=== PATIENT | female | born 1945 | race Caucasian/White ===

== ENCOUNTER 2020-04-30 12:09 | Observation (INO) ==
--- NOTE | 2020-04-30 12:55 | DR.GENAD ---
HPI Time Seen Time Seen by Provider: 04/30/20 12:55 PCP Primary Care Physician: CASSI FARRIS [place] HPI Comment HPI Comment: PATIENT IS 74YR OLD FEMALE FELL ONE WEEK AGO AND SUSTAINED INJURY TO LOWER BACK, RIGHT HIP AND RIGHT LEG AREA. PATIENT WENT HOME AMA BUT SAID PATIENT HAVE GOTTEN WORSE. Complaint/Symptoms Chief Complaint Doctors Comments: PAIN RIGHT HIP. LEG AND LOWER BACK DUE TO A F ALL LAST WEEK. Chief Complaint:: FELL LAST WEEK AND HAS PAIN TO THE RIGHT LEG/HIP/BACK AREA. SHE WAS OFFERRED ADMISSION AT THAT TIME AND FAMILY DECLINED. HE NOW ADMITS THAT HE IS UNABLE TO PROVIDE THE CARE THAT IS NEEDED FOR HER TO STAY AT HOME Self Treatment fo Chief Complaint: TAKING MEDS ORDERED COVID-19 Coronavirus risk:travel/contact w/high risk person: No Has patient experienced Coronavirus symptoms: No Source History Provided: Patient and Significant Other Mode of Arrival Mode of Arrival: Wheelchair Timing Onset of Chief Complaint: 04/29/20 PMH PMH Past Medical History: Yes Past Medical History: Hypertension Past Surgical History: Yes Surgical History: Hysterectomy Family History History of Family Medical Conditions: Yes Family Medical History: Hypertension Social History Alcohol Use: None Do you use any recreational Drugs:: No Lives With: Spouse Lives Where: Home Travel Risk Coronavirus risk:travel/contact w/high risk person: No Has patient experienced Coronavirus symptoms: No Infectious screening In the last 2 months have you had wt loss of >10#?: NO Have you had fever, night sweats or hemotysis?: No Have you traveled outside the country in the last 6 months?: No Isolation: Standard ROS Review of Systems Constitutional: See HPI, Weakness and Fatigue; negative Fever Eyes: No Symptoms Reported and See HPI ENTM: No Symptoms Reported and See HPI; negative Nose Discharge and Nose Congestion Respiratoy: No Symptoms Reported and See HPI; negative Moist Cough, Short of Breath and Wheezing Cardiovascular: No Symptoms Reported and See HPI Gastrointestinal/Abdominal: No Symptoms Reported and See HPI; negative Abdominal Pain, Diarrhea and Vomiting Genitourinary: No Symptoms Reported and See HPI; negative Dysuria Neurological: See HPI and Weakness; negative Headache and Dizziness Musculoskeletal: No Symptoms Reported, See HPI, Back Pain, Pelvis, Hip (RT HI[) and Leg (RT LEG.) Integumentary: No Symptoms Reported and See HPI; negative Change in Color, Rash and Juandice Hematologic/Lymphatic: No Symptoms Reported, See HPI and Easy Bruising Endocrine: No Symptoms Reported and See HPI; negative Increased Thirst and Increased Urine Psychiatric: No Symptoms Reported and See HPI All Other Systems: Reviewed and Negative PE Vital Signs Vitals: Temperature 98.9 F Pulse Rate 68 Respiratory Rate 29 Blood Pressure [Left Arm] 138/68 Blood Pressure 118/60 O2 Sat by Pulse Oximetry 98 General Limitations: No Limitations General Appearance: Alert and In No Apparent Distress Head Head Exam: Normal Inspection and Atraumatic Eyes Eye exam: Normal Appearance and PERRL; negative Scleral Icterus and Conjunctival Injection ENT ENT Exam: Normal Exam, Normal Oropharynx, Normal External Ear Exam and TM's Normal Bilaterally External Ear Exam: Normal External Inspection; negative Mastoid Tenderness TM/Canal Exam: Bilateral: Normal Nose Exam: Normal Nose Exam Mouth Exam: Normal Inspection; negative Lip Swelling and Tongue Swelling Throat Exam: Normal Inspection; negative Tonsillar Erythema, Tonsillomegaly and Tonsillar Exudate Neck Neck Exam: Normal Inspection and Trachea Midline; negative Tenderness and Lymphadenopathy Chest Chest Inspection: Normal Inspection; negative Symmetric Chest Wall Rise Respiratory Respiratory Exam: Normal Lung Sounds Bilat; negative Accessory Muscle Use and Respiratory Distress Respiratory Exam: Bilateral: Clear to Auscultation Cardiovascular Cardiovascular Exam: Regular Rate, Normal Rhythm and Normal Heart Sounds; negative Systolic Murmur and Diastolic Murmur Abdominal Exam Abdominal Exam: Normal Inspection, Normal Bowel Sounds and Soft; negative Tenderness Extremities Extremities Exam: Normal Inspection and Tenderness (RT HIP AND LEG TENDERNESS. ROM DECREASE.) Back Back Exam: Tenderness (LOWER BACK.), Paraspinal Tenderness (LOWER BACK.) and Vertebral Tenderness Neurologic Neurological Exam: Alert and Oriented X3; negative Motor Sensory Deficit Psychiatric Psychiatric Exam: Normal Affect and Normal Mood Skin Skin Exam: Warm, Dry, Intact and Normal Color MDM Differential Diagnosis Differential Diagnosis: PELVIC FRACTURE, GENERALIZED WEAKNESS, PNEUMONIA, UTI, FRACTURE PELVIC. COURSE Treatment Treatment: SEE ORDERS. MORPHIN 4MG IM AND ZOFRAN 4MG IM IN ER. PAIN IMPROVING. Reevaluation 1st: Improved Consultation Consultation Comments: DISCUSSED PATIENT WITH DR. ARROYO. HE WILL ADMIT PATIENT. Education/Counseling Education/Counseling: Patient and Family Educated On: Diagnosis ROR Labs Reviewed Laboratory Results Reviewed?: Yes Result Diagrams: 05/01/20 05:20 05/01/20 05:20 Laboratory: WBC 12.6 X10^3/uL (3.6-10.0) H 04/30/20 13:17 RBC 4.01 X10^6/uL (3.5-5.4) 04/30/20 13:17 Hgb 10.3 g/dL (12.0-16.0) L 04/30/20 13:17 Hct 32.0 % (36.0-47.0) L 04/30/20 13:17 MCV 79.8 fL (80.0-100.0) L 04/30/20 13:17 MCH 25.5 pg (27.0-34.0) L 04/30/20 13:17 MCHC 32.0 g/dL (33.0-35.0) L 04/30/20 13:17 RDW 22.1 % (11.6-16.5) H 04/30/20 13:17 Plt Count 501 X10^3/uL (150.0-450.0) H 04/30/20 13:17 Plt Count Comment Adequate (ADEQUATE) 04/30/20 13:17 MPV 8.2 fL (7.4-11.0) 04/30/20 13:17 Neut % (Auto) 81.0 % (42.0-75.0) H 04/30/20 13:17 Lymph % (Auto) 7.9 % (21.0-51.0) L 04/30/20 13:17 [place] % (Auto) 8.3 % (0.0-13.0) 04/30/20 13:17 Eos % (Auto) 2.8 % (0.9-2.9) 04/30/20 13:17 Baso % (Auto) 0 % (0.2-1.0) L 04/30/20 13:17 Neut # (Auto) 10.2 x10^3/uL (2.2-4.8) H 04/30/20 13:17 Lymph # (Auto) 1.0 X10^3/uL (1.3-2.9) L 04/30/20 13:17 [place] # (Auto) 1.0 x10^3/uL (0.3-0.8) H 04/30/20 13:17 Eos # (Auto) 0.4 x10^3/uL (0.0-0.2) H 04/30/20 13:17 Baso # (Auto) 0.0 X10^3/uL (0.0-0.1) 04/30/20 13:17 Absolute Nucleated RBC 0.1 /100WBC 04/30/20 13:17 Plt Morphology Comment Normal (NORMAL) 04/30/20 13:17 RBC Morphology Abnormal (NORMAL) A 04/30/20 13:17 Poikilocytosis Slight A 04/30/20 13:17 Anisocytosis Slight A 04/30/20 13:17 Sodium 140 mmol/L (136-145) 04/30/20 13:17 Corrected Sodium 140 mmol/L (136-145) 04/30/20 13:17 Potassium 4.3 mmol/L (3.5-5.1) 04/30/20 13:17 Chloride 107 mmol/L (98-107) 04/30/20 13:17 Carbon Dioxide 24.4 mmol/L (21-32) 04/30/20 13:17 BUN 33 mg/dL (7-18) H 04/30/20 13:17 Creatinine 1.24 mg/dL (0.55-1.02) H 04/30/20 13:17 Est GFR (MDRD) Af Amer 54 (>60) L 04/30/20 13:17 Est GFR (MDRD) Non-Af 45 (>60) L 04/30/20 13:17 Glucose 112 mg/dL (65-99) H 04/30/20 13:17 Calcium 8.9 mg/dL (8.5-10.1) 04/30/20 13:17 Corrected Calcium 10.3 mg/dL (8.5-10.1) H 04/30/20 13:17 Total Bilirubin 0.30 mg/dL (0.2-1.0) 04/30/20 13:17 AST 68 Units/L (15-37) H 04/30/20 13:17 ALT 15 Units/L (12-78) 04/30/20 13:17 Alkaline Phosphatase 138 Units/L (46-116) H 04/30/20 13:17 Total Protein 7.0 g/dL (6.4-8.2) 04/30/20 13:17 Albumin 2.3 g/dL (3.4-5.0) L 04/30/20 13:17 Globulin 4.7 g/dL (2.5-4.5) H 04/30/20 13:17 Albumin/Globulin Ratio 0.5 Ratio (1.1-2.1) L 04/30/20 13:17 SARS CoV-2 RNA Rapid NETO Negative (NEGATIVE) 04/30/20 13:24 XRAY XRAY Interpreted by: Radiologist (REPORT NOTED AND DISCUSSED WITH PATIENT.) and Self Opioid Opioid Risk Tool Age (Demar box if 16-45): No History of Preadolescent Sexual Abuse: No Total: 0 Total Score Risk Category: Low Risk Copyright: Ronak ARANDA predicting aberrant behaviors Diagnosis Discharge Problem: Generalized weakness, Frequent falls Closed pelvic fracture Qualifiers: Encounter type: subsequent encounter Pelvic bone location: pubis Sublocation of pubis: other portion of pubis Laterality: right Fracture healing: with routine healing Qualified Code(s): S32.591D - Other specified fracture of right pubis, subsequent encounter for fracture with routine healing
[2020-04-30] MEDS ORDERED: ZOFRAN INJ 4 MG VIAL IM ONE (13:06)
[2020-04-30] MEDS ORDERED: MORPHINE SULFATE INJ 4 MG IM ONE (13:06)
[2020-04-30] MEDS ORDERED: MORPHINE SULFATE INJ 4 MG ONE (13:14)
[2020-04-30] MEDS ORDERED: ZOFRAN INJ 4 MG VIAL ONE (13:14)
--- NOTE | 2020-04-30 13:29 | RAD ---
HISTORY:WeaknessStudy: Single view chestComparison:04/23/2020Findings:Mild nonspecific interstitial opacities appears stable. No infiltrate, effusion, or pneumothorax identified .Cardiac and mediastinal contours are within normal limits .The soft tissues are intact .IMPRESSION:1. Mild nonspecific interstitial opacities which could be chronic related to COPD or interstitial disease. No focal infiltrate identified. CT could be performed for further evaluation if indicated.Electronically signed by: MEME STALLWORTH (Apr 30, 2020 13:27:47)
[2020-04-30 13:35] LABS: BASOPHILS % (AUTO) 0 % (0.2-1.0); EOSINOPHILS # (AUTO) 0.4 x10^3/uL (0.0-0.2); EOSINOPHILS % (AUTO) 2.8 % (0.9-2.9); HEMOGLOBIN 10.3 g/dL (12.0-16.0); LYMPHOCYTES % (AUTO) 7.9 % (21.0-51.0); MEAN CORPUSCULAR HEMOGLOBIN 25.5 pg (27.0-34.0); MEAN CORPUSCULAR VOLUME 79.8 fL (80.0-100.0); MEAN PLATELET VOLUME 8.2 fL (7.4-11.0); MONOCYTES % (AUTO) 8.3 % (0.0-13.0); NEUTROPHILS # (AUTO) 10.2 x10^3/uL (2.2-4.8); PLATELET COUNT 501 X10^3/uL (150.0-450.0); RED BLOOD COUNT 4.01 X10^6/uL (3.5-5.4); RED CELL DISTRIBUTION WIDTH 22.1 % (11.6-16.5); WHITE BLOOD COUNT 12.6 X10^3/uL (3.6-10.0)
[2020-04-30 13:42] LABS: ALBUMIN 2.3 g/dL (3.4-5.0); CALCIUM 8.9 mg/dL (8.5-10.1); CARBON DIOXIDE 24.4 mmol/L (21-32); COR CA(FOR HYPOALB) 10.3 mg/dL (8.5-10.1); CREATININE 1.24 mg/dL (0.55-1.02)
[2020-04-30 13:51] LABS: ANISOCYTOSIS SLIGHT; PLATELET MORPHOLOGY COMMENT NORMAL (NORMAL)
[2020-04-30 13:52] LABS: POIKILOCYTOSIS SLIGHT
[2020-04-30] MEDS ORDERED: ULTRAM PO PRN (15:17)
[2020-04-30] MEDS ORDERED: MORPHINE SULFATE INJ 2 MG INJ IVP PRN (15:17)
[2020-04-30] MEDS ORDERED: MORPHINE SULFATE INJ 2 MG INJ IM PRN (15:21)
[2020-04-30] MEDS ORDERED: ZOFRAN INJ 4 MG VIAL IM PRN (15:23)
[2020-04-30] MEDS ORDERED: ZOFRAN INJ 4 MG VIAL IVP SCH (16:00)
[2020-04-30 16:22] VITALS: BMI 22.4
[2020-04-30] MEDS: COREG TAB 12.5 MG PO SCH (20:45)
[2020-04-30] MEDS ORDERED: LIPITOR TAB 40 MG PO SCH (21:00)
[2020-05-01 06:18] LABS: BASOPHILS # (AUTO) 0.1 X10^3/uL (0.0-0.1); EOSINOPHILS # (AUTO) 0.4 x10^3/uL (0.0-0.2); EOSINOPHILS % (AUTO) 4.7 % (0.9-2.9); HEMATOCRIT 31.8 % (36.0-47.0); HEMOGLOBIN 10.1 g/dL (12.0-16.0); LYMPHOCYTES # (AUTO) 0.9 X10^3/uL (1.3-2.9); LYMPHOCYTES % (AUTO) 9.5 % (21.0-51.0); MEAN CORPUSCULAR HEMOGLOBIN 25.5 pg (27.0-34.0); MEAN CORPUSCULAR HGB CONC 31.8 g/dL (33.0-35.0); MEAN CORPUSCULAR VOLUME 80.4 fL (80.0-100.0); MEAN PLATELET VOLUME 8.4 fL (7.4-11.0); MONOCYTES # (AUTO) 0.9 x10^3/uL (0.3-0.8); NEUTROPHILS % (AUTO) 74.8 % (42.0-75.0); PLATELET COUNT 454 X10^3/uL (150.0-450.0); RED BLOOD COUNT 3.96 X10^6/uL (3.5-5.4); RED CELL DISTRIBUTION WIDTH 21.9 % (11.6-16.5); WHITE BLOOD COUNT 9.3 X10^3/uL (3.6-10.0)
[2020-05-01 06:39] LABS: ANISOCYTOSIS 1+; PLATELET MORPHOLOGY COMMENT NORMAL (NORMAL)
[2020-05-01 06:48] LABS: ALANINE AMINOTRANSFERASE 16 Units/L (12-78); ALBUMIN 2.1 g/dL (3.4-5.0); ALKALINE PHOSPHATASE 131 Units/L (46-116); ASPARTATE AMINO TRANSFERASE 60 Units/L (15-37); BLOOD UREA NITROGEN 36 mg/dL (7-18); CARBON DIOXIDE 23.9 mmol/L (21-32); CHLORIDE 108 mmol/L (98-107); COR CA(FOR HYPOALB) 10.5 mg/dL (8.5-10.1); CREATININE 1.23 mg/dL (0.55-1.02); SODIUM 142 mmol/L (136-145); TOTAL PROTEIN 6.6 g/dL (6.4-8.2); eGFR NON BLACK RACES 45 (>60)
--- NOTE | 2020-05-01 07:58 | DR.SSS ---
SHORT STAY SUMMARY Admission Date Date of Admission: 04/30/20 Discharge Date Discharge Date: 05/01/20 Admission Diagnoses Admission Diagnoses: [place] DEBILITY Discharge Diagnoses Discharge Diagnoses: DEBILITY Chief Complaint Chief Complaint: WEAKNESS History of Present Illness History of Present Illness: PT IS A 74 YEAR OLD FEMALE, PATIENT OF DR RAKESH YE, ADMITTED FOR DEBILITY AFTER HAVING FALL LAST WEEK RESULTING IN FRACTURES. PT DID NOT WANT TO BE ADMITTED AT THAT TIME AND LEFT AMA. PATIENT'S RETURNED AFTER TREATMENT ELSEWHERE AND WAS OFFERRED REHABILATION BUT FAMILY REFUSED. PATIENT RETURNING IN PAIN TO THE RIGHT LEG/HIP/BACK AREA. NOW ADMITS THAT HE IS UNABLE TO PROVIDE THE CARE THAT IS NEEDED FOR HER TO STAY AT HOME. LABS/IMAGING:WBC 9.3, HGB 10.1, PLT 454, NA 142, K 4.6, CR 1.23, GLUCOSE 90, AST 60, ALT 16, ALKP 131, COVID NEGATIVE, CHEST XR:1.Mild nonspecific interstitial opacities which could be chronic related to COPD or interstitial disease. No focal infiltrate identified. CT could be performed for further evaluation if indicated. Past Medical History Past Medical History: Hypertension Past Surgical History Surgical History: Hysterectomy Allergies Allergies Allergy/AdvReac Type Severity Reaction Status Date / Time Sulfa (Sulfonamide Allergy Verified 03/05/20 07:05 Antibiotics) [SULFA] Medications Home Medications: Sulfa (Sulfonamide Antibiotics) [SULFA] Allergy (Verified 03/05/20 07:05) CONTINUE taking the following medications amlodipine 10 mg PO DAILY 04/30/20 [History] atorvastatin 40 mg PO HS 04/30/20 [History] carvedilol 12.5 mg PO BID 04/30/20 [History] cyanocobalamin (vitamin B-12) 1,000 mcg IM Q2W 04/30/20 [History] cyproheptadine 4 mg PO TID 04/30/20 [History] ferrous sulfate 325 mg PO DAILY 04/30/20 [History] lisinopril 20 mg PO DAILY 04/30/20 [History] venlafaxine 75 mg PO DAILY 04/30/20 [History] Family History Family Medical History: Hypertension Social History Does patient currently use any type of tobacco product: Yes Have you used tobacco products in the last 12 months: Yes Type of Tobacco Use: Cigarettes How many years tobacco product used: 62 Does any household member use tobacco: No Alcohol Use: None Drug Use: None Review of Systems Constitutional: Weakness; denies Fever and Chills Eyes: No Symptoms Reported ENT: No Symptoms Reported Respiratory: No Symptoms Reported Cardiovascular: No Symptoms Reported Gastrointestinal: No Symptoms Reported Genitourinary: No Symptoms Reported Musculoskeletal: Back Pain and Leg Pain Skin: No Symptoms Reported Neurological: No Symptoms Reported Physical Exam Vital Signs: Last Vital Signs Temp 97.8 F 05/01/20 04:00 Pulse 60 05/01/20 04:00 Resp 20 05/01/20 04:00 BP 120/59 05/01/20 04:00 Pulse Ox 97 05/01/20 04:00 Oriented: Normal Eyes: Normal Ear: Normal Nose: Normal Respiratory: Clear Throughout Cardiovascular: Normal : Normal Auscultation: Bowel Sounds: Normal Palpation: Normal Tenderness: Normal Skin: Normal Musculoskeletal: Instability Psychiatric: Normal Mood Description: Calm Speech Pattern: Clear Labs Labs: Laboratory Last Values WBC 9.3 X10^3/uL (3.6-10.0) 05/01/20 05:20 RBC 3.96 X10^6/uL (3.5-5.4) 05/01/20 05:20 Hgb 10.1 g/dL (12.0-16.0) L 05/01/20 05:20 Hct 31.8 % (36.0-47.0) L 05/01/20 05:20 MCV 80.4 fL (80.0-100.0) 05/01/20 05:20 MCH 25.5 pg (27.0-34.0) L 05/01/20 05:20 MCHC 31.8 g/dL (33.0-35.0) L 05/01/20 05:20 RDW 21.9 % (11.6-16.5) H 05/01/20 05:20 Plt Count 454 X10^3/uL (150.0-450.0) H 05/01/20 05:20 Plt Count Comment Increased (ADEQUATE) A 05/01/20 05:20 MPV 8.4 fL (7.4-11.0) 05/01/20 05:20 Neut % (Auto) 74.8 % (42.0-75.0) 05/01/20 05:20 Lymph % (Auto) 9.5 % (21.0-51.0) L 05/01/20 05:20 [place] % (Auto) 10.0 % (0.0-13.0) 05/01/20 05:20 Eos % (Auto) 4.7 % (0.9-2.9) H 05/01/20 05:20 Baso % (Auto) 1.0 % (0.2-1.0) 05/01/20 05:20 Neut # (Auto) 7.0 x10^3/uL (2.2-4.8) H 05/01/20 05:20 Lymph # (Auto) 0.9 X10^3/uL (1.3-2.9) L 05/01/20 05:20 [place] # (Auto) 0.9 x10^3/uL (0.3-0.8) H 05/01/20 05:20 Eos # (Auto) 0.4 x10^3/uL (0.0-0.2) H 05/01/20 05:20 Baso # (Auto) 0.1 X10^3/uL (0.0-0.1) 05/01/20 05:20 Absolute Nucleated RBC 0.0 /100WBC 05/01/20 05:20 Plt Morphology Comment Normal (NORMAL) 05/01/20 05:20 RBC Morphology Abnormal (NORMAL) A 05/01/20 05:20 Poikilocytosis Slight A 04/30/20 13:17 Anisocytosis 1+ A 05/01/20 05:20 Sodium 142 mmol/L (136-145) 05/01/20 05:20 Corrected Sodium TNP 05/01/20 05:20 Potassium 4.6 mmol/L (3.5-5.1) 05/01/20 05:20 Chloride 108 mmol/L (98-107) H 05/01/20 05:20 Carbon Dioxide 23.9 mmol/L (21-32) 05/01/20 05:20 BUN 36 mg/dL (7-18) H 05/01/20 05:20 Creatinine 1.23 mg/dL (0.55-1.02) H 05/01/20 05:20 Est GFR (MDRD) Af Amer 55 (>60) L 05/01/20 05:20 Est GFR (MDRD) Non-Af 45 (>60) L 05/01/20 05:20 Glucose 90 mg/dL (65-99) 05/01/20 05:20 POC Glucose (mg/dL) 83 mg/dL (65-99) 05/01/20 05:35 Calcium 9.0 mg/dL (8.5-10.1) 05/01/20 05:20 Corrected Calcium 10.5 mg/dL (8.5-10.1) H 05/01/20 05:20 Total Bilirubin 0.40 mg/dL (0.2-1.0) 05/01/20 05:20 AST 60 Units/L (15-37) H 05/01/20 05:20 ALT 16 Units/L (12-78) 05/01/20 05:20 Alkaline Phosphatase 131 Units/L (46-116) H 05/01/20 05:20 Total Protein 6.6 g/dL (6.4-8.2) 05/01/20 05:20 Albumin 2.1 g/dL (3.4-5.0) L 05/01/20 05:20 Globulin 4.5 g/dL (2.5-4.5) 05/01/20 05:20 Albumin/Globulin Ratio 0.5 Ratio (1.1-2.1) L 05/01/20 05:20 SARS CoV-2 RNA Rapid NETO Negative (NEGATIVE) 04/30/20 13:24 Assessment/Plan (1) Debility: (2) Frequent falls: Hospital Course Hospital Course: PT IS A 74 YEAR OLD FEMALE, PATIENT OF DR RAKESH YE, ADMITTED FOR DEBILITY AFTER HAVING FALL LAST WEEK RESULTING IN FRACTURES. PT DID NOT WANT TO BE ADMITTED AT THAT TIME AND LEFT AMA. PATIENT RETURNED AFTER TREATMENT ELSEWHERE AND WAS OFFERED REHABILITATION BUT FAMILY REFUSED. PATIENT RETURNING IN PAIN TO THE RIGHT LEG/HIP/BACK AREA. NOW ADMITS THAT HE IS UNABLE TO PROVIDE THE CARE THAT IS NEEDED FOR HER TO STAY AT HOME. LABS/IMAGING:WBC 9.3, HGB 10.1, PLT 454, NA 142, K 4.6, CR 1.23, GLUCOSE 90, AST 60, ALT 16, ALKP 131, COVID NEGATIVE, CHEST XR:1.Mild nonspecific interstitial opacities which could be chronic related to COPD or interstitial disease. No focal infiltrate identified. CT could be performed for further evaluation if indicated. CASE MANAGEMENT DISCUSSED AND COORDINATED WITH FAMILY. PT DISCHARGED IN STABLE CONDITION TO [facility] AND WILL BE UNDER THE CARE OF DR RAKESH YE. Discharge Medications Discharge Medications: Home Medication List amlodipine 10 mg PO DAILY 04/30/20 [History] atorvastatin 40 mg PO HS 04/30/20 [History] carvedilol 12.5 mg PO BID 04/30/20 [History] cyanocobalamin (vitamin B-12) 1,000 mcg IM Q2W 04/30/20 [History] cyproheptadine 4 mg PO TID 04/30/20 [History] ferrous sulfate 325 mg PO DAILY 04/30/20 [History] lisinopril 20 mg PO DAILY 04/30/20 [History] venlafaxine 75 mg PO DAILY 04/30/20 [History] Prescriptions: Discharge Disposition Discharge Disposition: DISCHARGED TO [facility]
[2020-05-01] MEDS: COREG TAB 12.5 MG PO SCH (08:31)
[2020-05-01] MEDS ORDERED: NORVASC TAB 10 MG PO SCH (09:00)
[2020-05-01 09:01] VITALS: BP 142/63
== END 2020-05-01 11:59 ==
LOC: MED/SURG 12:09 → ER 12:09 → MED/SURG 15:24
PROVIDERS: ADMIT Family Medicine; ATTEND Family Medicine
DX: Z20.822 Contact with and (suspected) exposure to COVID-19; R41.0 Disorientation, unspecified; R53.1 Weakness; R94.4 Abnormal results of kidney function studies; I10 Essential (primary) hypertension; R53.83 Other fatigue; D72.828 Other elevated white blood cell count; R52 Pain, unspecified